=== PATIENT | female | born 1950 | race Caucasian/White ===

== ENCOUNTER 2023-11-12 10:38 | Day surgery (SDC) | payer MEDICARE ==
[2023-11-09 10:35] VITALS: BP 143/86
[~2023-11-12] VITALS: Ht 152.4 cm; Wt 58.6 kg
[~2023-11-12 10:38] MED LIST: DIGITEK125 MCG PO; DILTIAZEM 24HR120 MG PO; IBLOOD GLUCOSE TEST STRIP 1 EA TEST VI PRN; LACTATED RINGER'S 1,000 ML IV SCH; LIDOCAINE HCL 1% 5 ML SDV INJ ONE; METOPROLOL TART50 MG PO; WARFARIN SODIUM3 MG PO
[2023-11-12] MEDS ORDERED: PRAVASTATIN SOD80 MG PO (10:58)
[2023-11-12] MEDS ORDERED: LOW DOSE ASPIRI81 MG PO (10:59)
[2023-11-12 11:07] VITALS: BP 162/110
[2023-11-12] MEDS ORDERED: propofoL 200 MG/20 ML VIAL ONE (11:28)
[2023-11-12] MEDS ORDERED: LIDOCAINE HCL 2% 5 ML SDV ONE (12:03)
[2023-11-12] MEDS ORDERED: ESMOLOL HCL 100 MG/10 ML VIAL IV ONE (12:06)
--- NOTE | 2023-11-12 12:35 | NUR ---
11/12/23 1235 Phylicia Tomas 1225-PATIENT ARRIVED TO PACU ON 4L OXYMASK ORAL AIRWAY IN PLACE. PATIIENT LAYING LEFT LATERAL. REACTIVE TO VERBAL STIMULI OPENING EYES ORAL AIRWAY REMOVED BY MANDIE BUSH. PATIENT SUCTIONED CLEAR SECRETIONS FROM MOUTH. AFIB HR 90'S-100'S BP ELEVATED DURING CASE. 1233-PATIENT AWAKE ORIENTED TO PACU. DENIES PAIN OR NAUSEA. PLACED ON RA 97% RR EVEN. PATIENT PASSING GAS. IVF INFUSING
[2023-11-12 12:55] VITALS: BP 164/86
--- NOTE | 2023-11-13 19:48 | OR ---
[facility] [address], [place] [address] Signed DATE OF OPERATION: 11/12/2023 SURGEON: Judith Isabel MD PREOPERATIVE DIAGNOSIS: Chronic constipation. POSTOPERATIVE DIAGNOSES: 1. Sigmoid diverticulosis and difficult sigmoid. 2. Internal hemorrhoids. 3. Mild proctitis. PROCEDURE: Total colonoscopy to cecum (prolonged, complicated, difficult). ANESTHESIA: Intravenous sedation, propofol; Alva Siegel CRNA INDICATIONS: This 72-year-old white woman is a patient of Dr. Laury Cummins. She has had longstanding trouble with constipation. She has numerous comorbidities including history of cerebrovascular accident in 2008 and resultant expressive aphasia. She is chronically anticoagulated with Coumadin. She has paroxysmal atrial fibrillation. She was recently seen in the emergency room for significant constipation, which ultimately cleared up with nonsurgical measures. She has never had colonoscopy in the past and is referred for that purpose. She and her understand the risk of bleeding, infection, perforation related to colonoscopy and wished to proceed. Of note, she has been off Coumadin for four days. FINDINGS: Her sigmoid colon was markedly deformed related to diverticular changes. Three separate scopes were required ultimately to find passage through this area, ultimately allowing for complete colonoscopy to the cecum. Special note, there was no evidence of polyp or other abnormality. There was mild proctitis probably related to scope manipulation and/or bowel prep and biopsy of the rectum was taken. Numerous diverticula were noted. The sigmoid and left colon but none proximally. DESCRIPTION OF PROCEDURE: The patient was brought to the endoscopy suite and placed in lateral decubitus position, given intravenous sedation with propofol infusional technique by the realtime reporter. Her Electronically Signed By: JUDITH ISABEL MD 11/13/231947 PATIENT NAME: ABILIO SHANE OPERATIVE REPORT DATE OF : 52 REPORT #: [id number] PHYSICIAN: JUDITH ISABEL MD PCP: LAURY CUMMINS MD REPORT IS CONFIDENTIAL AND NOT TO BE RELEASED WITHOUT AUTHORIZATION [facility] [address], [place] [address] Signed ASA category was considered 4. She had been off Coumadin for four days. Digital rectal examination was normal. An Olympus video colonoscope was passed into the rectum and manipulated into the sigmoid area. Numerous diverticula were noted. Various manipulations were undertaken to advance the scope that at one point approximately 40 cm into the colon, though the area for passage was well visualized the fibrotic change of diverticular changes were unable to allow for passage of the conventional adult colonoscope. Various maneuvers were undertaken still ineffective. The scope was carefully withdrawn, noting only diverticula and some abrasions of the colon related to its manipulation. Flexible upper endoscope was then obtained and passed to the same area, but as the stiffness of the scope was inadequate, the scope still could not pass the area in question. On that basis, the pediatric colonoscope was obtained and manipulated into the area and with various manipulations and a considerable amount of luck, the scope was passed beyond this area into the left colon. Passage beyond this was not problematic particularly and she was ultimately able to be intubated all the way to the cecum. Irrigation was undertaken and careful withdrawal of scope undertaken showing no sign of polyps or other abnormality. Diverticula once again noted in the left colon and the sigmoid. There was no sign of injury to the mucosa, but there was some mild proctitis and on that basis, biopsy was obtained. Hemorrhoids were noted on retroflexed view as well. The scope was removed, the patient taken to the recovery room in good condition. CONCLUDING DIAGNOSIS: Sigmoid diverticulosis, no doubt accounting for constipation issues. Mild proctitis probably bowel prep related. PLAN: Regimen of MiraLAX one scoop daily, Citrucel or fiber supplement and added fluids will be maintained to avoid constipation issues. She has limited mobility related to her previous cerebrovascular accident. These aforementioned remedies should be helpful to her. As regard to repeat colonoscopy in general would expect consideration of repeat in 10 years. Given a general infirmity, I think that is unlikely by that point. She will return to the ongoing care of Dr. Cummins otherwise. Judith Isabel MD /NIGEL /[id number] Electronically Signed By: JUDITH ISABEL MD 11/13/231947 PATIENT NAME: ABILIO SHANE OPERATIVE REPORT DATE OF : 52 REPORT #: [id number] PHYSICIAN: JUDITH ISABEL MD PCP: LAURY CUMMINS MD REPORT IS CONFIDENTIAL AND NOT TO BE RELEASED WITHOUT AUTHORIZATION [facility] [address], [place] [address] Signed cc: Laury Cummins MD Copies: LAURY CUMMINS MD ~ Electronically Signed By: JUDITH ISABEL MD 11/13/23 1948 PATIENT NAME: ABILIO SHANE MADELEINE OPERATIVE REPORT DATE OF : 52 REPORT #: [id number] PHYSICIAN: JUDITH ISABEL MD PCP: LAURY CUMMINS MD REPORT IS CONFIDENTIAL AND NOT TO BE RELEASED WITHOUT AUTHORIZATION
--- NOTE | 2023-11-18 16:21 | PATH ---
[facility] [address] [facility] [place], [place] [address] Signed SPECIMEN(S): A RECTUM BIOPSY SPECIMEN SOURCE: A. RECTUM BIOPSY CLINICAL HISTORY: Screening colonoscopy; chronic constipation FINAL PATHOLOGIC DIAGNOSIS: Rectum, biopsy: - Colonic mucosa with no significant pathologic changes BRP MICROSCOPIC EXAMINATION: Histologic sections of all submitted blocks are examined by light microscopy. These findings, together with the gross examination, support the pathologic diagnosis. GROSS DESCRIPTION: The specimen, labeled and designated "Damien rectum biopsy," is received in formalin and consists of two orozco soft tissue fragments, ranging from 0.2-0.3 cm. Entirely submitted in (A1). VB (under the direct supervision of a pathologist) The Gross Description was prepared using a voice recognition system. The report was reviewed for accuracy; however, sound-alike word errors, addition and/or deletions may occur. If there is any question about this report, please contact Client Services. ADDITIONAL NOTES: Immunohistochemical and/or in situ hybridization studies if performed in this case included appropriate positive controls that reacted as expected. This test was developed and its performance characteristics determined by [facility]. It has not been cleared or approved by the U.S. Food and Drug Administration. The FDA has determined that such clearance or approval is not necessary. This test is used for clinical purposes. It should not be regarded as investigational or for research. [facility] is certified under the Clinical Laboratory Improvement Amendments of 1988 (CLIA) as qualified to perform high complexity clinical laboratory testing. PATIENT NAME: ABILIO SHANE MADELEINE PATHOLOGY DATE OF : 52 REPORT #: [id number] PHYSICIAN: KATHERINE CARO PCP: LAURY SUE MD REPORT IS CONFIDENTIAL AND NOT TO BE RELEASED WITHOUT AUTHORIZATION [facility] [address] [facility] [place], [place] [address] Signed PERFORMING LABORATORY: Technical component was performed by [facility], [address] [place] [address] (CLIA# [id number]). Professional interpretation was performed by [facility] - [address] [id number] Diagnostician: Petros Muller MD Pathologist Electronically Signed 11/18/2023 Copies: ~ PATIENT NAME: ABILIO SHANE PATHOLOGY DATE OF : 52 REPORT #: [id number] PHYSICIAN: KATHERINE CARO PCP: LAURY SUE MD REPORT IS CONFIDENTIAL AND NOT TO BE RELEASED WITHOUT AUTHORIZATION
== END 2023-11-12 13:07 | disposition home or self-care (01) ==
LOC: OPS 10:38 → DS 10:38 → OPS 12:30 → DS 12:30 → OPS 13:07
PROVIDERS: ATTEND Surgery
PROC: 0DBP8ZX Excision of Rectum, Via Natural or Artificial Opening Endoscopic, Diagnostic (ICD-10-PCS; principal; 2023-11-12 12:30)
DX: K62.89 Other specified diseases of anus and rectum (principal); K57.30 Diverticulosis of large intestine without perforation or abscess without bleeding; K64.8 Other hemorrhoids; I69.920 Aphasia following unspecified cerebrovascular disease; I48.0 Paroxysmal atrial fibrillation; Z95.0 Presence of cardiac pacemaker; I10 Essential (primary) hypertension; Z79.01 Long term (current) use of anticoagulants; Z79.899 Other long term (current) drug therapy
CPT/HCPCS: 00811; 88305; J2001; J2704; J7121